=== PATIENT | female | born 1960 | race Two or more races ===

== ENCOUNTER → 2023-05-23 | Emergency (ER) | payer OTHER ==
[~2023-05-23] VITALS: Ht 157.5 cm; Wt 59.9 kg
[2023-05-23 09:33] LABS: HEMATOCRIT 41.9 % (36.0-45.00); MEAN CELL VOLUME 86.4 fL (80.00-100.00); MEAN CORPUSCULAR HEMOGLOBIN 28.9 pg (27.00-32.0); MEAN CORPUSCULAR HGB CONC 33.4 g/dl (32.0-36.0); PLATELET COUNT 345 K/uL (150-450); RED BLOOD COUNT 4.85 M/uL (4.00-6.00); RED CELL DISTRIBUTION WIDTH 14.1 % (11.5-14.5)
[2023-05-23 10:02] LABS: ALBUMIN 4.1 gm/dL (3.4-5.0); BILIRUBIN TOTAL 0.7 mg/dL (0.3-1.2); BILIRUBIN,CONJUGATED 0.14 mg/dL (0.0-0.2); BILIRUBIN,UNCONJUGATED 0.56 mg/dL (0.0-0.6); CREATININE SERUM 0.71 mg/dL (0.55-1.02); GFR 83.97; GLOBULINA 4.1 G/DL (2.4-3.5); POTASSIUM 4.22 mEq/L (3.5-5.1); TOTAL PROTEIN 8.2 gm/dL (6.4-8.2)
[2023-05-23 11:20] LABS: PH,URINE 5.5 (5.0-8.0); URINE APPEARANCE Clear; URINE BILIRRUBIN Negative (NEGATIVE); URINE BLOOD Large; URINE COLOR Yellow; URINE GLUCOSE Negative (NEGATIVE); URINE LEUKOCYTE Negative; URINE NITRATE Negative; URINE PROTEIN Negative (NEGATIVE); URINE UROBILINOGEN 0.2 E.U./dl
[2023-05-23 11:24] LABS: URINE BACTERIA 661.2 uL (0.0-1933); URINE EPITHELIAL CELLS 41.3 uL (0.0-38.8); URINE RBC 32.4 uL (0.0-20.8); URINE WBC 11.7 uL (0.0-23.2)
== END | disposition home or self-care (01) ==
LOC: ER 07:14
PROVIDERS: Emergency Medicine
DX: K11.6 Mucocele of salivary gland (principal); R22.1 Localized swelling, mass and lump, neck
CPT/HCPCS: 36415; 70491; Q9965